=== PATIENT | female | born 1950 | race Caucasian/White ===

== ENCOUNTER 2017-04-29 18:58 | Emergency (ER) | payer MEDICARE, OTHER ==
[2017-04-29 19:08] VITALS: PULSE 97; RESP 20
--- NOTE | 2017-04-29 19:46 | ED ---
Upper Extremity HPI - General Chief Complaint: Extremity Injury, Upper Stated Complaint: LEFT HAND INJURY Time Seen by Provider: 04/29/17 19:11 Source: patient, RN notes reviewed, old records reviewed Mode of arrival: ambulatory Limitations: no limitations - History of Present Illness Initial Comments: this is a 66-year-old female chief complaint of left hand fell and landed on her outstretched. She reports that she did take her rings offn after this happened yesterday. Patient states that she has no shoulder or elbow pain. She reports that she's had no previous injuries to this hand. Patient states that pain is mainly over fifth and fourth finger. She states that she's had previous surgeries on her right hand by Dr. Horan. She is right- handed.Patient denies any recent fever, chills, shortness of breath, chest pain , back pain, abdominal pain, nausea vomiting, numbness or tingling, dysuria or hematuria, constipation or diarrhea, headaches or visual changes, or any other current symptoms - Related Data Home Medications Medication Instructions Recorded Confirmed Atenolol [Tenormin] 1 tab PO DAILY 04/29/17 04/29/17 metFORMIN HCL 1 tab PO BID 04/29/17 04/29/17 Previous Rx's Medication Instructions Recorded Acetaminophen-Codeine 300-30mg 1 tab PO Q4H PRN #15 tablet 04/29/17 [Tylenol #3] Allergies Allergy/AdvReac Type Severity Reaction Status Date / Time cephalexin [From Keflex] Allergy Rash/Hives Verified 04/29/17 19:05 Penicillins Allergy Rash/Hives Verified 04/29/17 19:05 Sulfa (Sulfonamide Allergy Rash/Hives Verified 04/29/17 19:05 Antibiotics) Review of Systems ROS Statement: Those systems with pertinent positive or pertinent negative responses have been documented in the HPI. ROS Other: All systems not noted in ROS Statement are negative. Past Medical History Past Medical History: Diabetes Mellitus, Hyperlipidemia, Hypertension History of Any Multi-Drug Resistant Organisms: ESBL Date of last positivie culture/infection: 03/18/15 ESBL-Klebsiella MDRO Source:: Urine Past Surgical History: Appendectomy, Tubal Ligation Past Psychological History: No Psychological Hx Reported Smoking Status: Current every day smoker Past Alcohol Use History: None Reported Past Drug Use History: None Reported General Exam - General Exam Comments Initial Comments: well-appearing 66-year-old female. No distress. Limitations: no limitations General appearance: alert, in no apparent distress Head exam: Present: atraumatic, normocephalic, normal inspection Eye exam: Present: normal appearance, PERRL, EOMI. Absent: scleral icterus, conjunctival injection, periorbital swelling ENT exam: Present: normal exam Neck exam: Present: normal inspection. Absent: tenderness, meningismus, lymphadenopathy Respiratory exam: Present: normal lung sounds bilaterally. Absent: respiratory distress, wheezes, rales, rhonchi, stridor Cardiovascular Exam: Present: regular rate, normal rhythm, normal heart sounds. Absent: systolic murmur, diastolic murmur, rubs, gallop, clicks GI/Abdominal exam: Present: soft, normal bowel sounds. Absent: distended, tenderness, guarding, rebound, rigid Extremities exam: Present: normal inspection, full ROM, normal capillary refill. Absent: tenderness, pedal edema, joint swelling, calf tenderness Right Hand Wrist exam: Present: full ROM, tenderness, swelling (over fourht and fifth fingers. ). Absent: normal inspection Hand L/R Back: 1 - swelling Neuro motor exam: Present: wrist extension intact, thumb opposition intact, thumb IP flexion intact Vascular: Present: normal capillary refill Back exam: Present: normal inspection Neurological exam: Present: alert, oriented X3, CN II-XII intact Psychiatric exam: Present: normal affect, normal mood Skin exam: Present: warm, dry, intact, normal color. Absent: rash Course Vital Signs 04/29/17 04/29/17 19:06 20:45 Temperature 98.7 F 97.8 F Pulse Rate 97 97 Respiratory 20 20 Rate Blood Pressure 139/72 149/70 O2 Sat by Pulse 97 98 Oximetry Procedures - Orthopedic Splinting/Casting Injury #1 Side: left Upper Extremity Injury Location: hand Upper Extremity Immobilizer: volar splint Additional Comments: Non displaced obliquely oriented diaphyseal fracture of the fifth proximal phalanx, non comminuted with local soft tissue swelling over the fourth and fifth proximal phalanx. Medical Decision Making - Medical Decision Making this is a 66-year-old female chief complaint of left hand fell and landed on her outstretched. She reports that she did take her rings offn after this happened yesterday. Patient states that she has no shoulder or elbow pain. She reports that she's had no previous injuries to this hand. Patient states that pain is mainly over fifth and fourth finger. Patient has significant swelling oer fourth and fifth finger, dn reports wrist tendernesss. Patient hand xray shows oblique fracture over proximal fifth phalanx. Patient was placed in a volar splint. Patient advised to follow up with orthopedic. Return parameters discussed. - Radiology Data Radiology results: report reviewed Nondisplaced obliquely oriented day aphthous of fracture of the fifth proximal phalanx appear comminuted with localized soft tissue swelling over the fourth and fifth proximal phalanges. Disposition Clinical Impression: Finger fracture, left Disposition: HOME SELF-CARE Condition: Good Instructions: Finger Fracture (ED) Additional Instructions: patient advised to follow-up with orthopedic physician within the next 1-2 days. Take Motrin Tylenol for pain medication for pain. Patient is remaining in a splint. Return to the emergency department if any alarming signs or symptoms occur. Prescriptions: Acetaminophen-Codeine 300-30mg [Tylenol #3] 1 tab PO Q4H PRN #15 tablet PRN Reason: Pain Referrals: Yoana Gavin MD [Primary Care Provider] - 1-2 days Zach Horan DO [Doctor of Osteopathic Medicine] - 1-2 days Time of Disposition: 20:28
--- NOTE | 2017-04-29 20:01 | XR ---
EXAMINATION TYPE: XR hand complete LT DATE OF EXAM: 04/29/2017 CLINICAL HISTORY: Pain of the left fifth digit after fall TECHNIQUE: Frontal, lateral and oblique images of the left hand are obtained. COMPARISON: None. FINDINGS: There is a subtle nondisplaced fracture of the fifth proximal phalanx within the diaphysis that appears noncomminuted and obliquely oriented. Localized soft tissue swelling is seen of both th e fourth and fifth digit over the proximal phalanges. No other fracture is identified. There is sligh t osseous demineralization. IMPRESSION: Nondisplaced obliquely oriented diaphyseal fracture of the fifth proximal phalanx appeari ng noncomminuted with localized soft tissue swelling over the fourth and fifth proximal phalanges.
--- NOTE | 2017-04-29 20:04 | XR ---
EXAMINATION TYPE: XR wrist complete LT DATE OF EXAM: 04/29/2017 CLINICAL HISTORY: Pain after fall. Pain of the fifth digit and wrist. TECHNIQUE: Frontal, lateral and oblique images of the left wrist are obtained. COMPARISON: None FINDINGS: There is no acute fracture/dislocation evident in the left wrist. The joint spaces in the left wrist appear within normal limits. The overlying soft tissue appears unremarkable. Well-cortic ated fracture fragment is seen distal to the ulnar styloid which likely relates to prior injury as no donor site is evident. No fracture line is seen through the distal ulna and radial oriented protuber ance near the distal radial ulnar joint may relate to degenerative change and/or sequela of prior inj ury. IMPRESSION: 1. There is no acute fracture or dislocation in the left wrist. 2. Well-corticated rounded fragment distal to the ulnar styloid likely relating to old fracture as no donor site is evident. If there is persistent pain MRI could be performed to evaluate for T1 hypoint ense fracture line, bone marrow edema, and angle fibrocartilage tear.
[2017-04-29 20:46] VITALS: BP 149/70; TEMP 97.8
== END 2017-04-29 20:46 | disposition home or self-care (01) ==
LOC: EC 18:58
DX: S62.647A Nondisplaced fracture of proximal phalanx of left little finger, initial encounter for closed fracture (principal); I10 Essential (primary) hypertension; E11.9 Type 2 diabetes mellitus without complications; F17.200 Nicotine dependence, unspecified, uncomplicated; Z79.84 Long term (current) use of oral hypoglycemic drugs; Z79.899 Other long term (current) drug therapy; Z88.0 Allergy status to penicillin; Z88.1 Allergy status to other antibiotic agents; Z88.2 Allergy status to sulfonamides; W18.09XA Striking against other object with subsequent fall, initial encounter
CPT/HCPCS: 99284

== ENCOUNTER → 2018-11-27 | Outpatient (CLI) | payer MEDICARE, OTHER ==
--- NOTE | 2018-11-29 10:34 | MM ---
Reason for exam: screening (asymptomatic). Last mammogram was performed 2 years and 1 month ago. History: Patient is postmenopausal. Physical Findings: A clinical breast exam by your physician is recommended on an annual basis and results should be correlated with mammographic findings. MG 3D Screening Mammo W/Cad Bilateral CC and MLO view(s) were taken. Prior study comparison: November 03, 2016, bilateral MG screening mammo w CAD. November 03, 2015, bilateral MG screening mammo w CAD. There are scattered fibroglandular densities. No suspicious abnormality. No significant changes when compared with prior studies. ASSESSMENT: Negative, BI-RAD 1 RECOMMENDATION: Routine screening mammogram of both breasts in 1 year.
== END ==
LOC: RADMAMWWP 11:11
PROVIDERS: ATTEND Family Medicine
DX: Z12.31 Encounter for screening mammogram for malignant neoplasm of breast (principal)
CPT/HCPCS: 77063; 77067

== ENCOUNTER → 2021-04-08 | Outpatient (CLI) | payer MEDICARE, OTHER | END | disposition home or self-care (01) | LOC: LABWHC1 16:46 | PROVIDERS: ATTEND Family Medicine | DX: Z20.822 Contact with and (suspected) exposure to COVID-19 (principal) | CPT/HCPCS: U0003; C9803; U0005 ==

== ENCOUNTER → 2021-08-11 | Outpatient (CLI) | payer MEDICARE, OTHER ==
--- NOTE | 2021-08-15 12:25 | MM ---
Reason for exam: screening (asymptomatic). Last mammogram was performed 2 years and 8 months ago. History: Patient is postmenopausal. Physical Findings: A clinical breast exam by your physician is recommended on an annual basis and results should be correlated with mammographic findings. MG 3D Screening Mammo W/Cad Bilateral CC and MLO view(s) were taken. Prior study comparison: November 27, 2018, bilateral MG 3d screening mammo w/cad. November 03, 2016, bilateral MG screening mammo w CAD. There are scattered fibroglandular densities. There are benign appearing round regional calcifications bilaterally. There is no discrete abnormality. ASSESSMENT: Benign, BI-RAD 2 RECOMMENDATION: Routine screening mammogram of both breasts in 1 year.
== END | disposition home or self-care (01) ==
LOC: RADMAMWWP 15:13
PROVIDERS: ATTEND Family Medicine
DX: Z12.31 Encounter for screening mammogram for malignant neoplasm of breast (principal); Z78.0 Asymptomatic menopausal state
CPT/HCPCS: 77063; 77067

== ENCOUNTER → 2022-07-07 | Outpatient (CLI) | payer MEDICARE, OTHER ==
--- NOTE | 2022-07-07 20:36 | CT ---
EXAMINATION TYPE: CT abdomen w con CT DLP: 1444.10 mGycm, Automated exposure control for dose reduction was used. DATE OF EXAM: 07/07/2022 5:10 PM COMPARISON: None CLINICAL INDICATION:Female, 71 years old with history of R10.812 LUQ tenderness R19.7 Diarrhea; Left side abdominal pain since July after a fall TECHNIQUE: Axial CT of the abdomen and pelvis. Sagittal and coronal reformats were created on a [email or web address] workstation. Contrast used:100cc mL of Isovue 300 with IV Contrast, Oral contrast used: with Oral Contrast FINDINGS: LOWER CHEST: Unremarkable ABDOMEN LIVER: Unremarkable GALLBLADDER AND BILE DUCTS: Unremarkable. PANCREAS: Unremarkable. SPLEEN: Unremarkable. ADRENAL GLANDS: Unremarkable. KIDNEYS AND URETERS: No evidence of hydronephrosis or renal calculus. Bilateral renal cysts. PELVIS BLADDER: Unremarkable REPRODUCTIVE: Unremarkable. ABDOMEN & PELVIS STOMACH AND BOWEL: No evidence of bowel obstruction. Scattered clonic diverticula. PERITONEUM: No evidence of pneumoperitoneum or free fluid. VASCULATURE: No evidence of aortic aneurysm. Atherosclerosis of the arterial vasculature. MUSCULOSKELETAL: No acute osseous abnormalities, mild multilevel disc degeneration changes throughout the spine. LYMPH NODES: No gross evidence for lymphadenopathy. SOFT TISSUE/ABDOMINAL WALL: Small fat-containing umbilical hernia. IMPRESSION: 1. No acute abdominal process, no finding to correlate patient's abdominal soreness. 2. Colonic diverticulosis without evidence for acute inflammation. The left lower quadrant grossly unremarkable both in the abdomen and along the visualized subcutaneous tissues.
== END | disposition home or self-care (01) ==
LOC: RADCTMAIN 15:50
PROVIDERS: ATTEND Family Medicine
DX: K57.30 Diverticulosis of large intestine without perforation or abscess without bleeding (principal); R10.812 Left upper quadrant abdominal tenderness; R19.7 Diarrhea, unspecified
CPT/HCPCS: 82565; 84520; 74160; 36415; Q9967 ×2

== ENCOUNTER → 2022-08-10 | Outpatient (CLI) | payer MEDICARE, OTHER ==
--- NOTE | 2022-08-10 10:43 | CTL ---
EXAMINATION TYPE: CT Low Dose Lung DATE OF EXAM ORDERED: 08/10/2022 HISTORY: Long-term tobacco use. Lung cancer screening CT DLP: 84.[address] CTDI: 2.4 mGy Automated exposure control for dose reduction was used. SCREENING VISIT: Baseline COMPARISON: None TECHNIQUE: Low dose computed tomography scan was performed through the chest at 1 mm thick sections a nd reconstructed images in multiple planes at 1 mm and [address] DIAGNOSTIC QUALITY: Satisfactory FINDINGS: LUNG NODULES: Present, detailed below: There are a few scattered tiny nodules, for reference 3 mm left upper lobe nodule axial image 97 late rally. For reference 3 mm peripheral right upper lobe nodule axial image 68 No significant greater th an 5 mm pulmonary nodules LUNGS: COPD: Severity: Mild Fibrosis: Severity: Mild scattered Lymph nodes: None Other findings: Prominent right and left pulmonary arteries raises concern for underlying pulmonary a rtery hypertension. Slightly elevated left hemidiaphragm. RIGHT PLEURAL SPACE: Effusion: None Calcification: None Thickening: None Pneumothorax: None LEFT PLEURAL SPACE: Effusion: None Calcification: None Thickening: None Pneumothorax: None HEART: Heart Size: Normal Coronary Calcification: Severe Pericardial Effusion: None Left atrial appendage clip noted. OTHER FINDINGS: Upper abdomen: None Bony thorax: Slight scoliotic curvature Supraclavicular region: None Other: None IMPRESSION: Mild emphysematous change with few tiny nodules. No significant greater than 5 mm [address] ry nodules CT LUNG RAD AND CT CHEST RECOMMENDATION: Lung-Rad 2 Benign Appearance or Behavior: Continue annual sc reening with LDCT in 12 months. S Modifier (other clinically significant findings): S Severe coronary artery calcification should be correlated with additional cardiac risk factors.
== END | disposition home or self-care (01) ==
LOC: RADCTMAIN 09:37
PROVIDERS: ATTEND Family Medicine
DX: Z12.2 Encounter for screening for malignant neoplasm of respiratory organs (principal); J43.9 Emphysema, unspecified; Z87.891 Personal history of nicotine dependence
CPT/HCPCS: 71271

== ENCOUNTER → 2022-08-15 | Outpatient (CLI) | payer MEDICARE, OTHER ==
--- NOTE | 2022-08-16 12:15 | MM ---
Reason for Exam: Screening (asymptomatic). Last screening mammogram was performed 12 month(s) ago. Patient History: Menarche at age 12. First Full-Term at age 21. Postmenopausal. Patient has history of breast feeding. Patient used Progesterone for 1 year. Risk Values: Vani 5 year model risk: 1.4%. NCI Lifetime model risk: 3.6%. Prior Study Comparison: 11/03/2016 Bilateral Screening Mammogram, [facility]. 11/27/2018 Bilateral Screening Mammogram, [facility]. 08/11/2021 Bilateral Screening Mammogram, [facility]. Tissue Density: There are scattered fibroglandular densities. Findings: Analyzed By CAD. There is no suspicious group of microcalcifications or new suspicious mass in either breast. Overall Assessment: Negative, BI-RAD 1 Management: Screening Mammogram of both breasts in 1 year. A clinical breast exam by your physician is recommended on an annual basis and results should be correlated with mammographic findings. [facility] will attempt to contact patient to return for supplemental views and ultrasound if indicated. Electronically signed and approved by: Jamar Zuleta DO
== END | disposition home or self-care (01) ==
LOC: RADMAMWWP 09:01
PROVIDERS: ATTEND Family Medicine
DX: Z12.31 Encounter for screening mammogram for malignant neoplasm of breast (principal); Z78.0 Asymptomatic menopausal state
CPT/HCPCS: 77063; 77067

== ENCOUNTER → 2023-08-16 | Outpatient (CLI) | payer MEDICARE, OTHER ==
--- NOTE | 2023-08-16 10:55 | CTL ---
EXAMINATION TYPE: CT Low Dose Lung DATE OF EXAM ORDERED: 08/16/2023 HISTORY: Long-term tobacco use. Lung cancer screening CT DLP: 123.[address] CTDI: 3.30 mGy Automated exposure control for dose reduction was used. SCREENING VISIT: First study after baseline COMPARISON: Prior study August 10, 2022 TECHNIQUE: Low dose computed tomography scan was performed through the chest at 1 mm thick sections a nd reconstructed images in multiple planes at 1 mm and [address] DIAGNOSTIC QUALITY: Satisfactory FINDINGS: FINDINGS: LUNG NODULES: Present, detailed below: There are a few scattered tiny nodules, for reference 2-3 mm peripheral right upper lobe nodule axial image 54 is stable or less prominent. No significant new or enlarging greater than 5 mm pulmonary nodules LUNGS: COPD: Severity: Mild Fibrosis: Severity: Mild scattered Lymph nodes: None Other findings: Prominent right and left pulmonary arteries raises concern for underlying pulmonary a rtery hypertension. RIGHT PLEURAL SPACE: Effusion: None Calcification: None Thickening: None Pneumothorax: None LEFT PLEURAL SPACE: Effusion: None Calcification: None Thickening: None Pneumothorax: None HEART: Heart Size: Normal Coronary Calcification: Severe Pericardial Effusion: None OTHER FINDINGS: Upper abdomen: None Bony thorax: Slight scoliotic curvature is redemonstrated Supraclavicular region: None Other: None IMPRESSION: Mild emphysematous change with stable few scattered tiny nodules. No significant new or e nlarging greater than [address] LUNG RAD AND CT CHEST RECOMMENDATION: Lung-Rad 2 Benign Appearance or Behavior: Continue annual sc reening with LDCT in 12 months. S Modifier (other clinically significant findings): S Severe coronary artery calcification should be correlated with additional cardiac risk factors.
--- NOTE | 2023-08-16 18:30 | BD ---
EXAMINATION TYPE: Axial Bone Density DATE OF EXAM: 08/16/2023 CLINICAL HISTORY: 72 years old Female. ICD-10 CODE: Z78.0 Postmenopausal Height: 65in Weight: 204lb FRAX RISK QUESTIONS: Family History (Parent hip fracture): yes History of Fracture in Adulthood: yes, age 22 Secondary Osteoporosis: Current Tobacco Use: yes RISK FACTORS HISTORY OF: Hip Fracture (Right/Left): yes, right When: age 20 MEDICATIONS: EXAM MEASUREMENTS: Bone mineral densitometry was performed using the [employer] System. Bone mineral density as measured about the Lumbar spine is: ----- L1-L4(G/cm2): 1.034 T Score Values are as follows: ----- L1: -0.8 ----- L2: -1.5 ----- L3: -1.5 ----- L4: -1.2 ----- L1-L4: -1.2 Z Score Values are as follows: ----- L1: 0.1 ----- L2: -0.7 ----- L3: -0.7 ----- L4: -0.3 ----- L1-L4: -0.4 Bone mineral density has: Decreased -5.3% since study of: 12-05-10 Bone mineral density about the R hip (g/cm2): 0.951 Bone mineral density about the L hip (g/cm2): 1.035 T Score values are as follows: -----R Neck: -1.4 -----L Neck: -0.7 -----R Total: -0.5 -----L Total: 0.2 Z Score values are as follows: -----R Neck: -0.1 -----L Neck: 0.6 -----R Total: 0.6 -----L Total: 1.3 Bone mineral density has: Increased 2.7% since study of: 12-05-10 FRAX%s: The graph provided illustrates a 15.9% chance for a major osteoporotic fx and a 4.2% chance f or the hips probability for fx in 10 years time. IMPRESSION: Osteopenia (T Score between -2.5 and -1). There is slightly increased risk of fracture and the patient may be considered for treatment. Re-Screen 2-5 years. NOTE: T-SCORE=SD OF THE YOUNG ADULT MEAN.
--- NOTE | 2023-08-17 20:03 | MM ---
Reason for Exam: Screening (asymptomatic). Last screening mammogram was performed 12 month(s) ago. Patient History: Menarche at age 12. First Full-Term at age 21. Postmenopausal. Patient has history of breast feeding. Patient used Progesterone for 1 year. Risk Values: Vani 5 year model risk: 1.4%. NCI Lifetime model risk: 3.3%. Prior Study Comparison: 06/24/2014 Bilateral Screening Mammogram, [facility]. 11/03/2015 Bilateral Screening Mammogram, [facility]. 11/03/2016 Bilateral Screening Mammogram, [facility]. 11/27/2018 Bilateral Screening Mammogram, [facility]. 08/11/2021 Bilateral Screening Mammogram, [facility]. 08/15/2022 Bilateral MG 3D screening mammo w/cad, [facility]. Tissue Density: There are scattered fibroglandular densities. Findings: Analyzed By CAD. There is no suspicious group of microcalcifications or new suspicious mass in either breast. Overall Assessment: Negative, BI-RAD 1 Management: Screening Mammogram of both breasts in 1 year. . Patient should continue monthly self-breast exams. A clinical breast exam by your physician is recommended on an annual basis. This exam should not preclude additional follow-up of suspicious palpable abnormalities. Note on Vani scores and lifetime risk: 1. A Vani score greater than 3% is considered moderate risk. If this is the case, consider specialist referral to assess eligibility for a risk reducing agent. 2. If overall lifetime risk for the development of breast cancer is 20% or higher, the patient may qualify for future screening with alternating mammogram and breast MRI. Electronically signed and approved by: Katherine Bhagat M.D. Radiologist
== END | disposition home or self-care (01) ==
LOC: RADMAMWWP 09:05
PROVIDERS: ATTEND Family Medicine
DX: Z12.31 Encounter for screening mammogram for malignant neoplasm of breast (principal); R91.8 Other nonspecific abnormal finding of lung field; Z87.891 Personal history of nicotine dependence; Z78.0 Asymptomatic menopausal state
CPT/HCPCS: 71271; 77063; 77067; 77080

== ENCOUNTER 2025-01-05 10:06 | Day surgery (SDC) | payer MEDICARE ==
[~2025-01-05 10:06] MED LIST: ALPRAZolam 0.25 MG TAB PO PRN; ALPRAZolam 0.5 MG TAB PO PRN; NITROGLYCERIN SL TABS 0.4 MG TAB SUBLINGUAL PRN
[2025-01-05 11:08] LABS: Glucose,Whole Blood 156 mg/dL (70-110)
[2025-01-05] MEDS: IV FLUID CONTINUATION 1,000 ML IV ONE (11:22)
[2025-01-05] MEDS: LIDOCAINE 1% INJ 10MG/ML (20 ML MDV) SQ ONE ×2 (12:34→12:36)
[2025-01-05] MEDS: MIDAZOLAM 2 MG/2 ML VIAL IVP ONE (12:34)
[2025-01-05] MEDS: VERAPAMIL SYRINGE (5 MG/10 ML) INTRAARTER ONE (12:37)
[2025-01-05] MEDS: HEPARIN SODIUM,PORCINE 10,000 UNIT in SODIUM CHLORIDE 0.9% 1,000 ML IRRIGATION PRN (13:02)
[2025-01-05] MEDS: HEPARIN SODIUM,PORCINE (1 ML) 2,500 UNIT in SODIUM CHLORIDE 0.9% 250 ML IRRIGATION PRN (13:02)
[2025-01-05] MEDS: IOPAMIDOL-370 100ML BTL INJ ONE ×3 (13:29→14:36)
[2025-01-05] MEDS: fentaNYL (PF) 50 MCG/1 ML VIAL IVP ONE (13:29)
[2025-01-05] MEDS: NITROGLYCERIN SL TABS 0.4 MG TAB SUBLINGUAL ONE (13:30)
[2025-01-05] MEDS: CLOPIDOGREL 75 MG TAB PO ONE (13:58)
[2025-01-05] MEDS: ASPIRIN 325 MG TAB PO STA (15:08)
[2025-01-05] MEDS: SODIUM CHLORIDE 0.9% 1,000 ML in EMPTY BAG 1 BAG IV SCH (15:08)
[2025-01-05] MEDS: SODIUM CHLORIDE 0.9% 1,000 ML IV SCH (15:09)
[2025-01-05 15:20] LABS: Glucose,Whole Blood 122 mg/dL (70-110)
--- NOTE | 2025-01-05 17:24 | P.CARDCATH ---
Date of Procedure: 01/05/25 Description of Procedure: History: Patient was referred for cardiac catheterization to evaluate for CAD. This is a 73-year-old lady with a known history of CAD, known RCA occlusion PCI of circumflex with a 4.0 caliber 15 mm long vision stent performed in June 2012. She also quit smoking 5 months ago she has been having symptoms of chest tightness pressure and came into the office. She has moderate to severe aortic stenosis based on echo from April 2023. She was advised coronary angiogram and intervention brought in for the procedure after due discussion regarding risks benefits and options Procedure: #1 left heart catheterization and coronary angiography #2 PTCA and stenting of mid circumflex coronary artery with a drug-eluting stent. Performed by Dr. Kitty Blair, assisted by Dr. Alexandru Gonzalez Procedure Details: The risks, benefits, complications, treatment options, and expected outcomes were discussed with the patient. The patient and/or family concurred with the proposed plan, giving informed consent. Patient was brought to the photographic laboratory technician after IV hydration was begun and oral premedication was given. Patient was further sedated with midazolam. Patient was prepped and draped in the usual manner. Under strict aseptic precautions and local anesthesia a 6 Italian introducer was placed in the right radial artery. Using a JL 3/5 and a JR 4/0 catheters I performed coronary angiography and the same JR catheter was used to check LV pressures and LV gram was not performed. After the procedure was completed the sheaths and catheters were all removed. Hemostasis was achieved with TR band. Saturation in the fingers of the right hand was about 94%. Moderate conscious sedation time was 85 minutes. Patient's oxygen saturation hemodynamics and EKG were monitored closely. After the procedure was completed the sheaths and catheters were all removed. Hemostasis was achieved with Angio-Seal device/manual pressure and FemoStop. Findings: Hemodynamics: Left ventricle end-diastolic pressure was 10 mmHg 40 mm gradient across aortic valve on pullback pressures suggestive of severe aortic stenosis Left Main: Short patent disease-free vessel that bifurcates into LAD and circumflex LAD: Good caliber heavily calcified vessel midportion has a moderate 35 to 40% lesion beyond the caliber improves the vessel is large in caliber and distribution supplies a sizable amount of myocardium midportion has a 40% lesion with moderate calcification. CIRC: Very tortuous codominant vessel previous stent is widely patent in the proximal circumflex beyond the stent there is an eccentric 80 to 90% stenosis which appears to be the culprit lesion after which the caliber of the vessel improves and it runs all the way laterally a good-sized obtuse minor branch has minor irregularities. 90% stenosis distal to the previous stent which is patent RCA: Total occlusion similar to before receiving collaterals from left system LV: LV gram not performed Closure Device: TR band Complications: None Estimated Blood Loss: Minimal Impression: Codominant system normal filling pressures significant severe gradient across aortic valve suggestive of severe aortic stenosis, left main is free of significant disease 40% mid RCA calcified lesion 90% mid circumflex lesion beyond previous we placed a stent. Large caliber vessels. RCA totally occluded receives collaterals from left system Pre Procedure Diagnosis: Unstable angina with CAD Final Post Procedure Diagnosis: Unstable angina with two-vessel CAD Recommendation: PCI of circumflex that was performed expeditiously PCI procedure details: Initially used a CLS 3.5 guide catheter and a run-through wire wire was Distally I tried to advance a 3.0 12 mm NC trek balloon without success. I then used a guide liner with this I was able to predilate the lesion with some difficulty modest improvement was noted I then tried to advance a stent I had considerable difficulty. The guide support was inadequate. I then switched over the guide to a XB 3.5 guide with this there was better guide support I used a 2 wire combination with this I dilated the lesion with a 3.5 balloon with a improvement. However I could not advance a stent. I requested Dr. Gonzalez to assist me. We were able to then dilate this with a 3.5 balloon and then a 4.0 balloon following which we were able to advance a 12 mm stent, 3.0 caliber drug-eluting Xience stent and deployed in proximal portion of the lesion and another 3.5 caliber 12 mm long Xience stent well in the lesion deployed at high pressures. We then used a 4.5 caliber 15 mm long NC trek balloon and dilated to the entire area with excellent angiographic result. Because of extreme tortuosity intravascular ultrasound was not performed. ACT was about 272 after nearly 8000 units of heparin. Patient received 600 mg of Plavix and she will be on aspirin and Plavix without interruption for 1 year. Details and results were discussed with the patient as well as her son. Excellent angiographic result was achieved. Complications: None; patient tolerated the procedure well. Disposition: Pacu - hemodynamically stable. Condition: Stable Discharge Disposition: Patient will be sent to the sixth floor unit on telemetry..
[2025-01-05] MEDS: ATORVASTATIN 80 MG TAB PO SCH (20:14)
[2025-01-06 06:25] LABS: Basophils # (A) 0.02 10*3/uL (0.00-0.10); Basophils % (A) 0.3 %; Eosinophils # (A) 0.16 10*3/uL (0.04-0.35); Eosinophils % (A) 2.4 %; HCT 30.9 % (37.2-46.3); HGB 10.4 g/dL (12.0-15.0); Lymphocytes # (A) 1.82 10*3/uL (0.90-5.00); Lymphocytes % (A) 27.5 %; MCH 32.3 pg (27.0-32.0); MCHC 33.7 g/dL (32.0-37.0); Mean Platelet Volume 10.1 fL (9.5-12.2); Monocytes # (A) 0.67 10*3/uL (0.20-1.00); Monocytes % (A) 10.1 %; Neutrophils # (A) 3.91 10*3/uL (1.80-7.70); Neutrophils % (A) 59.2 %; Platelet Count 182 10*3/uL (140-440); RBC 3.22 10*6/uL (4.10-5.20); RDW 13.9 % (11.5-14.5); WBC 6.61 10*3/uL (4.50-10.00)
[2025-01-06 06:39] LABS: African American GFR (CKD) 83 (>60 ml/min/1.73 sqM); Anion Gap 9 mmol/L; Blood Urea Nitrogen 12 mg/dL (7-17); Calcium 9.3 mg/dL (8.4-10.2); Carbon Dioxide 25 mmol/L (22-30); Chloride 104 mmol/L (98-107); Glucose 154 mg/dL (74-99); Non-African American GFR(CKD) 72 (>60 ml/min/1.73 sqM); Sodium 138 mmol/L (137-145)
[2025-01-06 08:22] VITALS: BP 149/75
[2025-01-06] MEDS: CLOPIDOGREL 75 MG TAB PO SCH (08:27)
[2025-01-06] MEDS: LOSARTAN 50 MG TAB PO SCH (08:27)
[2025-01-06] MEDS: ASPIRIN 81 MG PO SCH (08:27)
[2025-01-06] MEDS: PIOGLITAZONE 45 MG TAB PO SCH (08:27)
[2025-01-06] MEDS: PANTOPRAZOLE 40 MG TABLET PO SCH (08:27)
[2025-01-06] MEDS: METOPROLOL TARTRATE 50 MG TAB PO SCH (08:39)
[2025-01-06 08:49] VITALS: PULSE 66; RESP 16; TEMP 98.6
[2025-01-06] MEDS ORDERED: METOPROLOL TARTRATE 12.5 MG TAB PO SCH (09:00)
--- NOTE | 2025-01-06 11:34 | P.DS ---
Providers Expected date of discharge: 01/06/25 Attending physician: Jakob Zaragoza Primary care physician: Yoana Gavin DISCHARGE DIAGNOSES: 1. #1 unstable angina, #2 moderate to severe aortic stenosis, #2 hypertension #3 hypercholesterolemia #4 history of prior myocardial infarction with known RCA occlusion] PROCEDURES: 1. #1 left heart catheterization coronary angiography, PTCA and stenting of a complex mid circumflex lesion beyond the previously stented area excellent result HISTORY OF PRESENTATION: This patient was admitted electively because of abnormal stress symptoms of angina with mild activity and known prior RCA occlusion and PCI of circumflex performed in 2011. HOSPITAL COURSE: Coronary angiogram was performed significant disease was noted in the mid circumflex just beyond the stented segment which was patent. A new stent was deployed technically difficult and challenging procedure postdilated with a 4.0 balloon excellent result postprocedure unremarkable right radial site is clean and dry with a good pulse vitals are stable no JVD S1-S2 heard normally there is ejection systolic murmur audible second heart sound is not well her lungs are clear abdomen and lower extremity exam is unremarkable. Patient will be discharged today and will see me in the office on Sunday. Discharge instructions given dual antiplatelet therapy for 1 year without interruption aspirin and Plavix DISCHARGE MEDICATIONS: Continue all current medications plus Plavix 75 mg daily and aspirin 81 mg daily. She is already on Lipitor and beta-jose. FOLLOW-UP: Office visit on Sunday at 9:15 AM. Discharge instructions given regarding activity diet and medications. She also has moderate to severe aortic stenosis which needs to be addressed. No significant related symptoms at this time. Plan - Discharge Summary Discharge Rx Participant: No New Discharge Prescriptions: New Clopidogrel [Plavix] 75 mg PO DAILY #90 tablet No Action metFORMIN HCL [Glucophage] 500 mg PO BID Pioglitazone [Actos] 45 mg PO DAILY Pantoprazole [Protonix] 40 mg PO DAILY Aspirin 81 mg PO DAILY Metoprolol Tartrate [Lopressor] 50 mg PO BID Losartan Potassium [Cozaar] 100 mg PO DAILY Atorvastatin [Lipitor] 80 mg PO HS Discharge Medication List metFORMIN HCL [Glucophage] 500 mg PO BID 04/29/17 [History] Aspirin 81 mg PO DAILY 01/05/25 [History] Atorvastatin [Lipitor] 80 mg PO HS 01/05/25 [History] Losartan Potassium [Cozaar] 100 mg PO DAILY 01/05/25 [History] Metoprolol Tartrate [Lopressor] 50 mg PO BID 01/05/25 [History] Pantoprazole [Protonix] 40 mg PO DAILY 01/05/25 [History] Pioglitazone [Actos] 45 mg PO DAILY 01/05/25 [History] Clopidogrel [Plavix] 75 mg PO DAILY #90 tablet 01/06/25 [Rx] Follow up Appointment(s)/Referral(s): Jakob Zaragoza MD [STAFF PHYSICIAN] - 01/12/25 9:15 am (PATIENT IS TO KEEP THE FOLLOW UP APPOINTMENT ALREADY MADE WITH DR. ZARAGOZA ON Dec AT 9:15 AM. ) Patient Instructions/Handouts: *Sur[facility] - After Heart Catheterization - Hardboard Supervisor Instructions, Moderate Sedation (DC), Fall Prevention (DC), After Radial Heart Catheterization (GEN) Activity/Diet/Wound Care/Special Instructions: OK TO SHOWER TOMORROW (REMOVE DRESSING FIRST AND NO NEED TO REAPPLY) NO DRIVING FOR TWO DAYS. AVOID PUSHING PULLING LIFTING MORE THAN 5 LBS FOR FIVE DAYS TO AVOID RISK OF BLEEDING. IF PUNCTURE SITE BLEEDS, APPLY FIRM PRESSURE AND GO TO NEAREST ER. DO NOT DRIVE SELF. MEDS PER AUTOMOTIVE PARTS ADVISOR. FOLLOW UP DIRECTED. SIGNS OF INFECTION IE: FEVER, RASH, UNUSUAL DRAINAGE, HARD KNOT OR LUMP CONTACT DR TO BE EVALUATED OR GO TO ER. Discharge Disposition: HOME SELF-CARE
== END 2025-01-06 11:07 | disposition home or self-care (01) ==
LOC: CATHCVL 10:06 → 6NMEDSUR 14:37 → CATHCVL 01-06 11:07
PROVIDERS: ATTEND Internal Medicine Interventional Cardiology
DX: I25.110 Atherosclerotic heart disease of native coronary artery with unstable angina pectoris (principal); I25.82 Chronic total occlusion of coronary artery; I35.0 Nonrheumatic aortic (valve) stenosis; I10 Essential (primary) hypertension; E78.00 Pure hypercholesterolemia, unspecified; I25.2 Old myocardial infarction; E11.9 Type 2 diabetes mellitus without complications; Z95.5 Presence of coronary angioplasty implant and graft; Z87.891 Personal history of nicotine dependence; Z88.0 Allergy status to penicillin; Z88.1 Allergy status to other antibiotic agents; Z88.2 Allergy status to sulfonamides; Z79.82 Long term (current) use of aspirin; Z79.02 Long term (current) use of antithrombotics/antiplatelets; Z79.84 Long term (current) use of oral hypoglycemic drugs; Z79.899 Other long term (current) drug therapy
CPT/HCPCS: 93458; 80048; 85025; 99152; 99153; C9600; C1769 ×3; C1887 ×3; C1894; C1874 ×2; C1725 ×4; J2250; J1644 ×3; J2003; Q9967; J3010; 93005

== ENCOUNTER → 2025-01-20 | Outpatient (CLI) | payer MEDICARE ==
--- NOTE | 2025-01-20 11:46 | MM ---
Reason for Exam: Screening (asymptomatic). Last mammogram was performed 1 year(s) and 5 month(s) ago. Patient History: Menarche at age 12. First Full-Term at age 21. Postmenopausal. Patient has history of breast feeding. Patient used Progesterone for 1 year. Risk Values: Vani 5 year model risk: 1.4%. NCI Lifetime model risk: 2.9%. Prior Study Comparison: 08/11/2021 Bilateral Screening Mammogram, [facility]. 08/15/2022 Bilateral MG 3D screening mammo w/cad, [facility]. 08/16/2023 Bilateral MG 3D screening mammo w/cad, [facility]. Tissue Density: There are scattered areas of fibroglandular density. Findings: Analyzed By CAD. Right breast: There is no suspicious group of microcalcifications or new suspicious mass. Left breast: There is no suspicious group of microcalcifications or new suspicious mass. Overall Assessment: Negative, BI-RAD 1 Management: Screening Mammogram of both breasts in [address] [facility] will attempt to contact patient to return for supplemental views and ultrasound if indicated. Patient should continue monthly self-breast exams. A clinical breast exam by your physician is recommended on an annual basis. This exam should not preclude additional follow-up of suspicious palpable abnormalities. Note on Vani scores and lifetime risk: 1. A Vani score greater than 3% is considered moderate risk. If this is the case, consider specialist referral to assess eligibility for a risk reducing agent. 2. If overall lifetime risk for the development of breast cancer is 20% or higher, the patient may qualify for future screening with alternating mammogram and breast MRI. [facility], , 01/20/2025 11:43 AM. Electronically signed and approved by: Jamar Zuleta DO
--- NOTE | 2025-01-24 07:53 | CTL ---
EXAMINATION TYPE: CT Low Dose Lung DATE OF EXAM: 01/20/2025 12:28 PM COMPARISON: 08/16/2023 SCREENING VISIT: Subsequent CT DIAGNOSTIC QUALITY: Satisfactory CLINICAL INDICATION: Female, 74 years old with history of Z12.2, Z87.891, Former smoker, quit 5 month s ago. Average 1 ppd x 51 years, Lung cancer screening, History of tobacco use. TECHNIQUE: Low dose computed tomography scan was performed through the chest at 1 mm thick sections a nd reconstructed images in the coronal plane at 1 mm thick sections. Contrast used: mL of , (none if empty) Oral contrast used: (none if empty) CT DLP: 133.7 mGycm, Automated exposure control for dose reduction was used. CT CTDI: 3.6 mGy, Automated exposure control for dose reduction was used. FINDINGS: LUNG NODULES: Present, detailed below: Scattered small nodules less than 5 m 1. 0.3 cm nodule peripheral right upper lobe. Series 4 image 70.a 2. Punctate lateral right lung density series 4 image 88. 3. Peripheral 0.3 cm nodule lateral right upper lung field. Series 4 image 7. Present previously LUNGS: COPD: Severity: None Fibrosis: Severity: None Lymph nodes: None Other findings: None RIGHT PLEURAL SPACE: Effusion: None Calcification: None Thickening: None Pneumothorax: None LEFT PLEURAL SPACE: Effusion: None Calcification: None Thickening: None Pneumothorax: None HEART: Other: Ascending thoracic aorta at the level the main pulmonary artery measures 3.5 cm. The main pul monary artery at the bifurcation measures 3.3 cm. Heart Size: Normal Coronary calcification: Severe coronary artery calcifications present. Pericardial effusion: None OTHER FINDINGS: Upper abdomen: Normal Bony thorax: Normal Supraclavicular region: Normal IMPRESSION: Benign findings FOLLOW UP CT CHEST RECOMMENDATION: Follow-up low-dose CT chest with CT LUNG RAD: Lung-Rad 2 Benign Appearance or Behavior [facility], Workstation: [id number], 01/24/2025 7:50 AM
== END | disposition home or self-care (01) ==
LOC: RADMAMWWP 11:02
PROVIDERS: ATTEND Family Medicine
DX: Z12.31 Encounter for screening mammogram for malignant neoplasm of breast (principal); Z12.2 Encounter for screening for malignant neoplasm of respiratory organs; R92.323 Mammographic fibroglandular density, bilateral breasts; Z87.891 Personal history of nicotine dependence; Z78.0 Asymptomatic menopausal state
CPT/HCPCS: 71271; 77063; 77067

== ENCOUNTER → 2025-02-17 | Outpatient (CLI) | payer MEDICARE ==
[2025-02-17 07:23] VITALS: PULSE 69; TEMP 98.2
[2025-02-17 07:27] LABS: Glucose,Whole Blood 181 mg/dL (70-110)
[2025-02-17 08:07] LABS: Basophils # (A) 0.03 10*3/uL (0.00-0.10); Basophils % (A) 0.4 %; Eosinophils # (A) 0.16 10*3/uL (0.04-0.35); Eosinophils % (A) 2.4 %; HCT 33.4 % (37.2-46.3); HGB 10.9 g/dL (12.0-15.0); Lymphocytes # (A) 2.05 10*3/uL (0.90-5.00); Lymphocytes % (A) 30.2 %; MCH 31.3 pg (27.0-32.0); MCHC 32.6 g/dL (32.0-37.0); MCV 96.0 fL (80.0-97.0); Monocytes # (A) 0.69 10*3/uL (0.20-1.00); Monocytes % (A) 10.2 %; Neutrophils # (A) 3.80 10*3/uL (1.80-7.70); Neutrophils % (A) 55.9 %; Platelet Count 201 10*3/uL (140-440); RBC 3.48 10*6/uL (4.10-5.20); RDW 14.6 % (11.5-14.5); WBC 6.79 10*3/uL (4.50-10.00)
[2025-02-17 08:12] LABS: ALT 18 U/L (4-34); AST 23 U/L (14-36); African American GFR (CKD) 77 (>60 ml/min/1.73 sqM); Albumin 4.4 g/dL (3.5-5.0); Albumin/Globulin Ratio 1.9; Alkaline Phosphatase 110 U/L (38-126); Anion Gap 9 mmol/L; Blood Urea Nitrogen 18 mg/dL (7-17); Calcium 9.4 mg/dL (8.4-10.2); Carbon Dioxide 26 mmol/L (22-30); Chloride 104 mmol/L (98-107); Globulin 2.3 g/dL; Glucose 164 mg/dL (74-99); Non-African American GFR(CKD) 67 (>60 ml/min/1.73 sqM); Potassium 4.1 mmol/L (3.5-5.1); Sodium 139 mmol/L (137-145); Total Protein 6.7 g/dL (6.3-8.2)
[2025-02-17 08:16] LABS: INR 0.9 (<1.2); Partial Thromboplastin Time 23.9 sec (22.0-30.0); Prothrombin Time 10.3 sec (10.0-12.5)
[2025-02-17 08:18] LABS: Bilirubin,Urine Negative (Negative); Blood,Urine Negative (Negative); Color,Urine Colorless; Glucose,Urine (UA) Negative (Negative); Ketones,Urine Negative (Negative); Leukocyte Esterase,Urine Negative (Negative); Nitrite,Urine Negative (Negative); PH, Urine 6.0 (5.0-8.0); Protein,Urine Negative (Negative); Specific Gravity,Urine 1.009 (1.001-1.035); Urobilinogen,Urine <2.0 mg/dL (<2.0)
[2025-02-17 10:55] LABS: ALT 17 U/L (8-44); AST 23 U/L (13-35); Albumin 4.4 g/dL (3.8-4.9); Albumin/Globulin Ratio 1.76 Ratio (1.60-3.17); Alkaline Phosphatase 107 U/L (41-126); Bilirubin,Unconjugated >0.20 mg/dL (0.20-1.00); Cholesterol 152.00 mg/dL (0.00-200.00); Globulin 2.5 g/dL (1.6-3.3); HDL Cholesterol 40.20 mg/dL (40.00-60.00); LDL Cholesterol,Calculated 71.4 mg/dL (0.0-131.0); Magnesium 1.6 mg/dL (1.5-2.4); Total Protein 6.9 g/dL (6.2-8.2); Triglycerides 202.00 mg/dL (0.00-149.00); VLDL Calculation 40.40 mg/dL (5.00-40.00)
[2025-02-17 10:57] LABS: NT-Pro-B-Type Natriuretic Pept 350 pg/mL (0-450)
[2025-02-17 14:17] VITALS: BP 135/67; RESP 18
--- NOTE | 2025-02-17 15:53 | US ---
EXAMINATION TYPE: US carotid duplex BILAT DATE OF EXAM: 02/17/2025 COMPARISON: NONE CLINICAL INDICATION: Female, 74 years old with history of I35.1 NONRHEUMATIC AORTIC (VALVE) INSUFFICI ENCY; TVAR patient TECHNIQUE: Grayscale, color Doppler and spectral Doppler evaluation of the bilateral carotid systems and vertebral arteries. Indirect Doppler criteria was utilized. FINDINGS: EXAM MEASUREMENTS: RIGHT: Peak Systolic Velocity (PSV) cm/sec ----- Right CCA: 70.9 ----- Right ICA: 155.0 ----- Right ECA: 164.0 ICA/CCA ratio: 2.2 RIGHT: End Diastole cm/sec ----- Right CCA: 9.7 ----- Right ICA: 30.3 ----- Right ECA: 0.0 LEFT: Peak Systolic Velocity (PSV) cm/sec ----- Left CCA: 75.2 ----- Left ICA: 125.0 ----- Left ECA: 90.3 ICA/CCA ratio: 1.7 LEFT: End Diastole cm/sec ----- Left CCA: 16.1 ----- Left ICA: 22.7 ----- Left ECA: 0.0 VERTEBRALS (direction of flow): Right Vertebral: Antegrade Left Vertebral: Antegrade Rhythm: Normal BOOSTER PLANT OPERATOR NOTES: Difficult to penetrate due to deep set vessels and pulsatile flow, heterogeneous p laque seen, increased velocities on the right, no significant stenosis seen Color Doppler imaging shows patency with blood flow throughout the carotid artery. Spectral waveforms are within normal limits. IMPRESSION: Slight increased velocities on the right may reflect a mild, less than 50% proximal right ICA stenosi s. No hemodynamically significant internal carotid artery stenosis on either side. Criteria for Assigning % of Stenosis / Diameter reduction (Estimation based on the indirect measurements of the internal carotid artery velocities (ICA PSV). 1. Normal (no stenosis)=ICA PSV < 180 cm/s: ratio < 2.0: ICA EDV<40 cm/s. 2. Less than 50% stenosis=ICA PSV < 180 cm/s: ratio < 2.0: ICA EDV<40 cm/s. 3. 50 to 69% stenosis=ICA PSV of 180 to 230 cm/s: ration 2.0 ? 4.0: ICA EDV 40-100 cm/s. PSV 125-180 cm/sec and ICA/CCA PSV Ratio ? 2.0 is also consistent with 50-69% stenosis 4. Greater than 70% stenosis to near occlusion= ICA PSV > 230 cm/s: ratio > 4.0: ICA EDV > 100 cm/s. 5. Near occlusion= ICA PSV velocities may be low or undetectable: variable ratio and ICA EDV. 6. Total occlusion=unable to detect flow. [facility], , 02/17/2025 3:51 PM
--- NOTE | 2025-02-18 10:40 | CT ---
EXAMINATION TYPE: CT TAVR Planning DATE OF EXAM: 02/17/2025 HISTORY: TAVR planning CT DLP: 2462.4 mGycm Automated Exposure Control for Dose Reduction was Utilized. CONTRAST: CT scan of the chest, abdomen and pelvis is performed with IV Contrast, patient injected with 120 mL of Isovue 370. COMPARISON: TECHNIQUE: Helical imaging obtained through the chest, abdomen and pelvis during arterial phase aracelis laurence administration of radiographic contrast intravenously. FINDINGS: VASCULAR: Vascular calcifications within portions of the aorta predominantly within the anterior aort ic arch. The ascending thoracic aorta at the main pulmonary artery is 3.4 cm. Main pulmonary artery a t the bifurcation is 3.2 cm. Descending thoracic aorta contains some wall calcification. No aneurysma l dilatation is evident. LUNGS/ PLEURA: The lung parenchyma appears unremarkable. HEART: Size within normal limits. MEDIASTINUM: No gross evidence of adenopathy. VASCULATURE: No aortic aneurysm or dissection. MUSCULOSKELETAL: No acute osseous abnormalities ABDOMEN LIVER: Unremarkable GALLBLADDER AND BILE DUCTS: Unremarkable. PANCREAS: Unremarkable. SPLEEN: Unremarkable. ADRENAL GLANDS: Unremarkable. KIDNEYS AND URETERS: No evidence of hydronephrosis or renal calculus. The ureters are unremarkable. Cysts within the posterior right mid kidney. With the inferior pole right renal cyst is present. PELVIS: BLADDER: Unremarkable REPRODUCTIVE: Unremarkable. ABDOMEN & PELVIS VASCULATURE: No evidence of aortic aneurysm. MUSCULOSKELETAL: No acute osseous abnormalities LYMPH NODES: No gross evidence for lymphadenopathy. Bowel: Diverticular changes are within the sigmoid colon. IMPRESSIONS: 1. No suspicious acute changes. 2. Marked calcifications of the coronary vessels. 3. Renal cysts [facility], Workstation: [email or web address], 02/18/2025 10:38 AM
== END | disposition home or self-care (01) ==
LOC: RADUSWWP 06:51
PROVIDERS: ATTEND Thoracic Surgery (Cardiothoracic Vascular Surgery)
DX: Z01.818 Encounter for other preprocedural examination (principal); I35.1 Nonrheumatic aortic (valve) insufficiency; I35.0 Nonrheumatic aortic (valve) stenosis; E87.8 Other disorders of electrolyte and fluid balance, not elsewhere classified; R58 Hemorrhage, not elsewhere classified; E07.9 Disorder of thyroid, unspecified; R35.0 Frequency of micturition; E11.9 Type 2 diabetes mellitus without complications; N28.9 Disorder of kidney and ureter, unspecified; E78.5 Hyperlipidemia, unspecified; I25.10 Atherosclerotic heart disease of native coronary artery without angina pectoris; N28.1 Cyst of kidney, acquired; Z79.899 Other long term (current) drug therapy; Z79.01 Long term (current) use of anticoagulants
CPT/HCPCS: 94150; 83880; 80061; 80053; 80076; 83735; 85025; 85610; 85730; 81003; 83036; 93880; 71275; 74174; Q9967